=== PATIENT | female | born 1975 | race Caucasian/White ===

== ENCOUNTER 2019-01-06 10:24 | Emergency (ER) | payer OTHER ==
[~2019-01-06] VITALS: Ht 172.7 cm; Wt 67.4 kg
[2019-01-06 10:40] VITALS: BP 132/94
[2019-01-06] MEDS ORDERED: ASPI-1718 PO (11:42)
[2019-01-06] MEDS ORDERED: SERT50TA PO (11:42)
[2019-01-06] MEDS ORDERED: MULT15LI1 PO (11:42)
[2019-01-06] MEDS ORDERED: KEP500L PO (11:42)
[2019-01-06] MEDS ORDERED: IBUP-2213 PO (11:42)
[2019-01-06] MEDS ORDERED: BEN50 PO (11:42)
[2019-01-06] MEDS ORDERED: FERR325E14 PO (11:42)
[2019-01-06] MEDS ORDERED: PRON INH (11:42)
[2019-01-06] MEDS ORDERED: PANT40EC PO (11:42)
[2019-01-06] MEDS ORDERED: TYL650S PO (11:42)
[2019-01-06] MEDS ORDERED: BISA-246 RC (11:42)
[2019-01-06 11:47] LABS: BASOPHILS % (AUTO) 0.5 % (0.0-2.0); EOSINOPHILS # (AUTO) 0.1 K/uL (0-0.4); EOSINOPHILS % (AUTO) 1.4 % (0.0-4.0); HEMATOCRIT 38.6 % (36-48); HEMOGLOBIN 13.2 g/dL (12.0-16.0); LYMPHOCYTES # (AUTO) 1.4 K/uL (2.5-16.5); LYMPHOCYTES % (AUTO) 35.1 % (20.5-51.1); MEAN CORPUSCULAR HEMOGLOBIN 30 pg (27-31); MEAN CORPUSCULAR HGB CONC 34 g/dL (33-37); MEAN CORPUSCULAR VOLUME 86.6 fL (80-94); MONOCYTES # (AUTO) 0.3 K/uL (0.8-1.0); MONOCYTES % (AUTO) 8.4 % (1.7-9.3); NEUTROPHILS # (AUTO) 2.2 K/uL (1.8-7.7); NEUTROPHILS % (AUTO) 54.6 % (42.2-75.2); PLATELET COUNT (AUTO) 219 K/uL (140-450); RED BLOOD CELL COUNT(AUTO) 4.46 MIL/uL (4.20-5.40); RED CELL DISTRIBUTION WIDTH 12.5 % (11.6-13.7); WHITE BLOOD COUNT (AUTO) 4.1 K/uL (4.8-10.8)
[2019-01-06 11:50] LABS: APPEARANCE,URINE SL CLOUDY (CLEAR); BILIRUBIN,URINE NEGATIVE (NEGATIVE); BLOOD, URINE 2+ (NEGATIVE); COLOR,URINE YELLOW (YELLOW); LEUKOCYTE ESTERASE ,URINE TRACE (NEGATIVE); NITRITE, URINE NEGATIVE (NEGATIVE); UGLUCOSE NEGATIVE (NEGATIVE)
[2019-01-06 11:52] LABS: ANION GAP 12.5 (8-16); CREATININE 0.6 mg/dL (0.6-1.3); POTASSIUM 3.5 mmol/L (3.5-5.1)
[2019-01-06 11:58] LABS: TOTAL BILIRUBIN 0.4 mg/dL (0.0-1.0)
--- NOTE | 2019-01-06 13:43 | NUR ---
report given to letty for continuity of care
--- NOTE | 2019-01-06 13:43 | NUR ---
report given to letty for continuity of care
--- NOTE | 2019-01-06 14:30 | NUR ---
Patient discharged with v/s stable. Written and verbal after care instructions given and explained. Patient alert, oriented and verbalized understanding of instructions. Ambulatory with steady gait. All questions addressed prior to discharge. ID band removed. Patient advised to follow up with PMD. Rx of PYRIDIUM, CIPROFLOXACIN given. Patient educated on indication of medication including possible reaction and side effects. Opportunity to ask questions provided and answered.
[2019-01-06 14:40] VITALS: BP 122/82
== END 2019-01-06 14:30 | disposition home or self-care (01) ==
LOC: MED 10:24
DX: N39.0 Urinary tract infection, site not specified (principal); R19.7 Diarrhea, unspecified; J45.909 Unspecified asthma, uncomplicated; I10 Essential (primary) hypertension; G80.9 Cerebral palsy, unspecified; Z79.1 Long term (current) use of non-steroidal anti-inflammatories (NSAID); Z79.82 Long term (current) use of aspirin; Z79.899 Other long term (current) drug therapy
CPT/HCPCS: 36415; 80053; 81001; 81025; 85025; 87086; 99284

== ENCOUNTER 2019-01-31 10:21 | Inpatient (IN) | payer MEDICAID, OTHER ==
[~2019-01-31] VITALS: Ht 167.6 cm; Wt 52.2 kg
[~2019-01-31 10:21] MED LIST: ASPI-1718 PO; BEN50 PO; BISA-246 RC; FERR325E14 PO; IBUP-2213 PO; KEP500L PO; MULT15LI1 PO; PANT40EC PO; PRON INH; SERT50TA PO; TYL650S PO
[2019-01-31 10:22] VITALS: BP 80/58
--- NOTE | 2019-01-31 10:38 | NUR ---
[facility] WHEELCHAIR ASSISTED TO BED 5 AT THIS TIME.
--- NOTE | 2019-01-31 10:46 | NUR ---
PATIENT PRESENTS TO ED WITH BROUGHT IN BY CAREGIVER---PT C/O INTERMITTENT WATERY STOOLS, SUPRAPUBIC PAIN WITH BURNING PAIN UPON VOIDING X 2 WK HAS A G-TUBE WHICH ONLY USES FOR MEDICATIONS--- SKIN IS PINK/WARM/DRY; AAOX4 WITH EVEN AND STEADY GAIT; LUNGS CLEAR BL; HR EVEN AND REGULAR; PT DENIES ANY FEVER, CP, SOB, OR COUGH AT THIS TIME; PATIENT STATES PAIN OF 8/10 AT THIS TIME; VSS; PATIENT POSITIONED FOR COMFORT; HOB ELEVATED; BEDRAILS UP X2; BED DOWN. ER MD MADE AWARE OF PT STATUS.
--- NOTE | 2019-01-31 10:46 | NUR ---
UNABLE TO VOID AT THIS TIME.
[2019-01-31] MEDS ORDERED: MORPHINE SULFATE 2 MG/ML SYR IVP ONE (10:55)
[2019-01-31] MEDS ORDERED: ONDANSETRON 4 MG/2 ML VIAL IVP ONE (10:55)
[2019-01-31] MEDS ORDERED: NACL 0.9% 1,000 ML IV ONE (10:55)
[2019-01-31 11:31] LABS: BASOPHILS % (AUTO) 0.3 % (0.0-2.0); EOSINOPHILS # (AUTO) 0.2 K/uL (0-0.4); HEMATOCRIT 41.8 % (36-48); LYMPHOCYTES # (AUTO) 2.1 K/uL (2.5-16.5); LYMPHOCYTES % (AUTO) 24.9 % (20.5-51.1); MEAN CORPUSCULAR HEMOGLOBIN 29 pg (27-31); MEAN CORPUSCULAR HGB CONC 34 g/dL (33-37); MEAN CORPUSCULAR VOLUME 86.1 fL (80-94); MONOCYTES # (AUTO) 1.1 K/uL (0.8-1.0); MONOCYTES % (AUTO) 13.1 % (1.7-9.3); NEUTROPHILS # (AUTO) 4.9 K/uL (1.8-7.7); NEUTROPHILS % (AUTO) 59.7 % (42.2-75.2); PLATELET COUNT (AUTO) 384 K/uL (140-450); RED BLOOD CELL COUNT(AUTO) 4.86 MIL/uL (4.20-5.40); RED CELL DISTRIBUTION WIDTH 12.1 % (11.6-13.7); WHITE BLOOD COUNT (AUTO) 8.3 K/uL (4.8-10.8)
--- NOTE | 2019-01-31 11:38 | NUR ---
PT C/O PAIN TO LEFT HAND IV INSERT SITE---RIGHT FOREARM PIV INSERTED, PATENT CXR AT BEDSIDE
[2019-01-31 11:45] LABS: PROTHROMBIN TIME 10.3 secs (10.8-13.4)
[2019-01-31 11:46] LABS: ANION GAP 11.4 (8-16); CARBON DIOXIDE 31.6 mmol/L (21-32); CREATININE 0.9 mg/dL (0.6-1.3); TOTAL BILIRUBIN 0.2 mg/dL (0.0-1.0)
[2019-01-31] MEDS ORDERED: KCL 20 MEQ/WATER INJ PREMIX 100 ML IV ONE (12:05)
[2019-01-31] MEDS ORDERED: MAG SULF 2000 MG/WATER PREMIX 50 ML IV ONE ×3 (12:05→12:20)
--- NOTE | 2019-01-31 12:08 | NUR ---
PT NOTIFIED OF PT'S HR
[2019-01-31] MEDS ORDERED: ACETAMINOPHEN 325 MG TAB PO PRN (12:50)
[2019-01-31] MEDS ORDERED: ONDANSETRON 4 MG/2 ML VIAL IVP PRN (12:50)
--- NOTE | 2019-01-31 13:13 | NUR ---
START K RIDER SLOW AT 25ML / HR SINCE PT HAS 22GA PIV RIGHT FOREARM TO PREVENT IRRITATION OR PAIN TO SITE
[2019-01-31 13:16] LABS: APPEARANCE,URINE CLEAR (CLEAR); BILIRUBIN,URINE NEGATIVE (NEGATIVE); BLOOD, URINE 2+ (NEGATIVE); COLOR,URINE YELLOW (YELLOW); LEUKOCYTE ESTERASE ,URINE NEGATIVE (NEGATIVE); NITRITE, URINE NEGATIVE (NEGATIVE); UGLUCOSE NEGATIVE (NEGATIVE)
[2019-01-31 13:22] LABS: BARBITURATE, URINE NEG. ng/ml (NEG <=200); BENZODIAZEPINE, URINE NEG. ng/mL (NEG <=200); CANNABINOID, URINE NEG. ng/mL (NEG <=50); COCAINE, URINE NEG. ng/mL (NEG <=300); OPIATE, URINE NEG. ng/mL (NEG <=2000); PHENCYCLIDINE SCREEN,URINE NEG. ng/mL (NEG <=25)
[2019-01-31 13:26] LABS: CHOL/HDL RATIO 2.9 (1-4.5); FREE T4 (FREE THYROXINE) 1.58 ng/dL (0.76-1.46); PHOSPHORUS 2.3 mg/dL (2.5-4.9); THYROID STIMULATING HORMONE 1.12 uIU/mL (0.34-3.74)
[2019-01-31] MEDS ORDERED: GLYCERIN ADULT 1 SUPP RC PRN (13:30)
[2019-01-31] MEDS ORDERED: IBUPROFEN 600 MG TAB PO PRN (13:30)
[2019-01-31] MEDS ORDERED: diphenhydrAMINE 50 MG CAP PO PRN (13:30)
--- NOTE | 2019-01-31 13:54 | NUR ---
Pt transferred to Tele via [facility] REPORT GIVEN TO AIMEE GAMA
--- NOTE | 2019-01-31 14:00 | NUR ---
Received patient from ER via gurney accompanied by staff. Patient awake, alert and oriented to name, situation and time. No apparent physical distress. Attached tele monitor. Initiate admission assessment. Skin intact. PERRL. Lungs clear to auscultation bilaterally. Abdomen soft, non-distended, bowel sounds present all quadrant, reports abdominal pain. Able to make needs known. Oriented to room set-up. Safety precautions in place. Will continue to monitor.
[2019-01-31 14:19] LABS: RBC,URINE 11-20 (MOD) /HPF (0-5)
[2019-01-31 14:20] LABS: WBC,URINE 0-5 /HPF (0-5)
[2019-01-31] MEDS ORDERED: ALBUTEROL SULFATE/IPRATROPIU 3 ML SOL IH PRN (14:20)
[2019-01-31] MEDS: DEXT 5% /NACL 0.9% 1,000 ML IV SCH ×2 (14:28→23:38)
[2019-01-31 14:35] VITALS: BP 108/75
[2019-01-31] MEDS: HYDROcodone/APAP 7.5/325 MG 1 TAB PO PRN (16:11)
--- NOTE | 2019-01-31 16:11 | NUR ---
Patient reports still having abdominal cramping pain, /, noted patient grimacing with guarded movements. Given prn of Hydrocodone 7.5/325 1 tab PO. Will continue to monitor.
[2019-01-31 16:17] VITALS: BP 90/65
--- NOTE | 2019-01-31 18:41 | NUR ---
VSS. PATIENT ALERT AND ORIENTED. NO ACUTE PHYSICAL DISTRESS. PATIENT COMPLAINED OF ABDOMINAL PAIN 5/10 MEDICATED WITH NORCO 7.5/325 WITH RELIEF. ON TELE MONITOR WITH SR-ST. PATIENT ENCOURAGED TO TURN AND REPOSITION Q2H. SCD IN PLACE. ASLEEP AT THIS TIME. SAFETY PRECAUTIONS MAINTAINED AT ALL TIMES. WILL CONTINUE TO MONITOR.
--- NOTE | 2019-01-31 19:07 | NUR ---
RECEIVED REPORT FROM AM SHIFT. PT AFEBRILE AOX4. LUNG SOUNDS CLEAR. EVEN UNLABORED BREATHING. SR ON MONITOR. DENIES CHEST PAIN. ABD SOFT NONTENDER. BOWEL SOUNDS HYPOACTIVE X 4 QUADRANTS. NPO EXCEPT MEDS. BLADDER NON DISTENDED. URINE CLEAR YELLOW. BSC AT BEDSIDE. IV SITE LFA 22G. DRESSING INTACT. L HAND 22 G. BED IN LOWEST POSITION. SIDE RAILS UP X 4. CALL LIGHT WITHIN REACH. WILL CONTINUE TO MONITOR,.
--- NOTE | 2019-01-31 19:17 | NUR ---
ENDORSED CARE TO LANETTE STALLINGS FOR CONTINUITY OF CARE.
--- NOTE | 2019-01-31 19:39 | NUR ---
DR. JARAMILLO AT BEDSIDE AT THIS TIME. UPDATED ON PTS CURRENT CONDITION. WILL CONTINUE TO FOLLOW UP ANY ADDITIONAL ORDERS
[2019-01-31 20:00] VITALS: BP 90/61
[2019-01-31] MEDS ORDERED: [UNRECOGNIZED DRUG - REMARK] IV ONE (20:40)
[2019-01-31] MEDS ORDERED: [UNRECOGNIZED DRUG - OTHER] MC ONE (20:40)
[2019-01-31] MEDS: AMITRIPTYLINE 10 MG TAB PO SCH (20:59)
[2019-01-31] MEDS: DOCUSATE SODIUM 100 MG GELCAP PO SCH (20:59)
[2019-01-31] MEDS: levETIRAcetam 100 MG/ML ORASYR PO SCH (20:59)
[2019-01-31] MEDS ORDERED: MAGNESIUM CITRATE 300 ML BTL PO SCH (21:00)
[2019-01-31] MEDS ORDERED: FERROUS SULFATE 325 MG TABEC PO SCH (21:00)
--- NOTE | 2019-01-31 21:04 | NUR ---
SPOKE TO ADELSO. FINANCIAL CONSULTANT FOR COBBLESTONE BOARD AND CARE. UPDATED ON PTS CURRENT CONDITION.
--- NOTE | 2019-01-31 21:07 | NUR ---
XRAY AT BEDSIDE AT THIS TIME
--- NOTE | 2019-01-31 21:46 | NUR ---
ULTRASOUND AT BEDSIDE AT THIS TIME
--- NOTE | 2019-01-31 23:30 | NUR ---
PT UP TO USE BSC AT THIS TIME. URINE ONLY AT THIS TIME. URINE CLEAR YELLOW. NO FOUL ODOR NOTED.
[2019-01-31] MEDS: METOCLOPRAMIDE 10 MG/2 ML INJ VIAL IVP SCH (23:43)
[2019-02-01] VITALS: BP 113/61
--- NOTE | 2019-02-01 00:52 | NUR ---
PT URINATED IN BSC AT THIS TIME. URINE CLEAR YELLOW. NO SIGNS OF ACUTE DISTRESS AT THIS TIME.
--- NOTE | 2019-02-01 03:48 | NUR ---
PT RESTING QUIETLY AT THIS TIME. NO SIGNS OF ACUTE DISTRESS NOTED.
[2019-02-01 04:00] VITALS: BP 92/63
--- NOTE | 2019-02-01 04:50 | NUR ---
LAB AT BEDSIDE AT THIS TIME FOR AM DRAWS
--- NOTE | 2019-02-01 05:45 | NUR ---
PT ON BEDSIDE COMMODE AT THIS TIME
[2019-02-01] MEDS: METOCLOPRAMIDE 10 MG/2 ML INJ VIAL IVP SCH ×3 (06:00→17:12)
[2019-02-01 06:01] LABS: ANION GAP 6.5 (8-16); CARBON DIOXIDE 31.6 mmol/L (21-32); CREATININE 0.6 mg/dL (0.6-1.3); POTASSIUM 3.1 mmol/L (3.5-5.1)
[2019-02-01 06:02] LABS: MAGNESIUM 2.4 mg/dL (1.8-2.4); PHOSPHORUS 3.2 mg/dL (2.5-4.9)
--- NOTE | 2019-02-01 06:10 | NUR ---
DR. WOLF AT BEDSIDE AT THIS TIME. UPDATED ON PTS CURRENT CONDITION. WILL CONTINUE TO FOLLOW UP ADDITIONAL ORDERS
[2019-02-01] MEDS ORDERED: KCL 20 MEQ/WATER INJ PREMIX 200 ML IV SCH (06:45)
[2019-02-01 06:47] LABS: BASOPHILS % (AUTO) 0.5 % (0.0-2.0); EOSINOPHILS # (AUTO) 0.4 K/uL (0-0.4); EOSINOPHILS % (AUTO) 7.6 % (0.0-4.0); HEMATOCRIT 31.4 % (36-48); HEMOGLOBIN 10.9 g/dL (12.0-16.0); LYMPHOCYTES % (AUTO) 40.7 % (20.5-51.1); MEAN CORPUSCULAR HEMOGLOBIN 30 pg (27-31); MEAN CORPUSCULAR HGB CONC 35 g/dL (33-37); MEAN CORPUSCULAR VOLUME 85.8 fL (80-94); MONOCYTES # (AUTO) 0.6 K/uL (0.8-1.0); MONOCYTES % (AUTO) 11.9 % (1.7-9.3); NEUTROPHILS # (AUTO) 1.9 K/uL (1.8-7.7); NEUTROPHILS % (AUTO) 39.3 % (42.2-75.2); PLATELET COUNT (AUTO) 309 K/uL (140-450); RED BLOOD CELL COUNT(AUTO) 3.66 MIL/uL (4.20-5.40); RED CELL DISTRIBUTION WIDTH 12.3 % (11.6-13.7); WHITE BLOOD COUNT (AUTO) 4.9 K/uL (4.8-10.8)
--- NOTE | 2019-02-01 07:16 | NUR ---
RECEIVED REPORT FROM ICU NURSE TRAVIS. PT IS AOX4. LUNG SOUNDS CLEAR. EVEN UNLABORED BREATHING. SR ON MONITOR. DENIES CHEST PAIN. BOWEL SOUNDS ACTIVE X 4 QUADRANTS. NPO EXCEPT MEDS. BLADDER NON DISTENDED. IV SITE LFA 22G. DRESSING INTACT. L HAND 22 G. BED IN LOWEST POSITION. SIDE RAILS UP X 4. CALL LIGHT WITHIN REACH. WILL CONTINUE TO MONITOR.
--- NOTE | 2019-02-01 07:33 | NUR ---
ENDORSED CARE TO [facility] NURSE. PT TRANSFERRED TO [facility] 106A
[2019-02-01 08:00] VITALS: BP 102/58
[2019-02-01] MEDS: SERTRALINE 50 MG TAB PO SCH (09:09)
[2019-02-01] MEDS: DOCUSATE SODIUM 100 MG GELCAP PO SCH ×2 (09:09→21:41)
[2019-02-01] MEDS: levETIRAcetam 100 MG/ML ORASYR PO SCH ×2 (09:09→21:43)
[2019-02-01] MEDS: ASPIRIN 81 MG TAB.CHEW PO SCH (09:09)
--- NOTE | 2019-02-01 09:09 | NUR ---
ADMINISTERED MORNING MEDS TO PT. PT TOLERATED THEM WELL. ALL NEEDS CURRENTLY MET FOR PT. PT WAS ALSO GIVEN NORCO FOR MORALES PAIN OF 6/10. WILL CONTINUE TO MONITOR PT. BED IN LOW POSITION, CALL LIGHT WITHIN REACH.
[2019-02-01] MEDS: PANTOPRAZOLE 40 MG TABEC PO SCH (09:10)
[2019-02-01] MEDS: HYDROcodone/APAP 7.5/325 MG 1 TAB PO PRN (09:10)
[2019-02-01] MEDS: POTASSIUM CHLORIDE 40 MEQ, LIDOCAINE 1% 25 MG in NACL 0.9% 250 ML IV SCH ×2 (09:11→11:38)
--- NOTE | 2019-02-01 10:02 | NUR ---
PATIENT HAS BEEN SCREENED AND CATEGORIZED HIGH NUTRITION RISK. PATIENT WILL BE SEEN WITHIN 1-2 DAYS OF ADMISSION. 02/01/19-02/02/[address]
[2019-02-01] MEDS: DEXT 5% /NACL 0.9% 1,000 ML IV SCH (10:05)
[2019-02-01] MEDS ORDERED: fentaNYL 0.05 MG/ML VIAL ONE (10:16)
[2019-02-01] MEDS ORDERED: MIDAZOLAM 2 MG/2 ML VIAL ONE ×2 (10:16)
[2019-02-01] MEDS ORDERED: diphenhydrAMINE 50 MG/ML VIAL ONE (10:16)
--- NOTE | 2019-02-01 10:46 | NUR ---
PT TAKEN TO OR FOR EGD PROCEDURE. PT LEFT IN STABLE CONDITION.
[2019-02-01] MEDS ORDERED: fentaNYL 0.05 MG/ML VIAL IVP ONE (12:50)
[2019-02-01] MEDS ORDERED: MIDAZOLAM 2 MG/2 ML VIAL IVP ONE (12:50)
--- NOTE | 2019-02-01 13:38 | NUR ---
02/01/19 RD INITIAL ASSESSMENT COMPLETED PLEASE REFER TO NUTRITION ASSESSMENT UNDER CARE ACTIVITY FOR ESTIMATED NUTRITIONAL NEEDS. 1. CONTINUE FULL LIQUID DIET 2. IF/WHEN PT IS MEDICALLY STABLE RECOMMEND BRAT DIET 3. HEALTHY EATING EDUCATION WAS PROVIDED 4. RD TO FOLLOW-UP 2-3 DAYS, HIGH RISK MALIK WAGNER RD
[2019-02-01 16:00] VITALS: BP 102/54
[2019-02-01] MEDS: MUPIROCIN CA NASAL 2% 1GM TUBE NS SCH (16:04)
[2019-02-01] MEDS: CHLORHEXADINE GLUC 2% CLOTH TP SCH (16:04)
--- NOTE | 2019-02-01 19:32 | NUR ---
RECEIVED REPORT FROM AQUILINO GAMA DAYSHIFT NURSE AT BEDSIDE FOR CONTINUITY OF CARE, PT IN STABLE CONDITION.
--- NOTE | 2019-02-01 19:32 | NUR ---
ENDORSED PT TO HYBRID TECHNOLOGIST FOR CONTINUITY OF CARE. PT IN STABLE CONDITION.
[2019-02-01 20:00] VITALS: BP 107/76
--- NOTE | 2019-02-01 20:00 | NUR ---
RECEIVED REPORT FROM AQUILINO GAMA DAYSHIFT NURSE AT BEDSIDE FOR CONTINUITY OF CARE, PT IN STABLE CONDITION. PT AOX4 ON FALLS AND CONTACT PRECAUTIONS. PT ASSISTED ON BEDPAN. IV SITE ON RIGHT F/A REMOVED DUE TO DISCOMFORT. PT IV FLUIDS RUNNING VIA LEFT HAND 222G. FLUIDS RUNNING ORDERED. SEIZURE PRECAUTIONS IN PLACE. PT LUNGS CLEAR AND BOWEL SOUNDS PRESENT. V/S FOLLOWS T 97.8 P 80 R 20 B/P 107/76 02 95% ON ROOM AIR.
--- NOTE | 2019-02-01 21:30 | NUR ---
PT GIVEN LACTULOSE, KEPPRA , COLACE AND ELAVIL ORDERED. PT ASSISTED TO TOILET AND BACK NO BM YET. NO S/S OF PAIN OR DISTRESS NOTED. IV SITE ON LEFT HAND INTACT AND RUNNING FLUIDS ORDERED.
[2019-02-01] MEDS: LACTULOSE 20 GM/30 ML UDC PO SCH (21:42)
[2019-02-01] MEDS: AMITRIPTYLINE 10 MG TAB PO SCH (22:19)
--- NOTE | 2019-02-02 00:30 | NUR ---
PT IN BED, PT REQUEST BED RUIZ AND WAS GIVEN REQUESTED. V/S FOLLOWS T T 97.8 P 78 R 18 B/P 99/70 02 97% ON R/A. ALL FALLS, CONTACT ASPIRATION AND SEIZURE PRECAUTIONS IN PLACE. PT DENIES PAIN AT THIS TIME ALL REQUESTED NEEDS ATTENDED AND CLL SMALL IN REACH.
[2019-02-02] MEDS: METOCLOPRAMIDE 10 MG/2 ML INJ VIAL IVP SCH ×3 (01:02→12:04)
[2019-02-02 04:00] VITALS: BP 105/66
--- NOTE | 2019-02-02 06:00 | NUR ---
IV SITE INFILTRATED ON LEFT HAND IV REMOVED AND IV FLUIDS STOPPED, PT DIDN'T RECEIVE IV REGALN AT 6AM .
--- NOTE | 2019-02-02 07:20 | NUR ---
REPORT GIVEN TO KO RN DAYSHIFT NURSE AT BEDSIDE, PT IN STABLE CONDITION.
--- NOTE | 2019-02-02 07:21 | NUR ---
RECEIVED REPORT FROM PM NURSE AT THE BEDSIDE. PT HAS THE IV SITE INFILTRATED. LFT HAND SWOLLEN DUE TO THE INFILTRATION. PT HAS THE G-TUBE. NO TUBE FEEDING. ON CONTACT PRECAUTION FOR MRSA IN THE NARES AND SEIZURE PRECAUTION. PT PLACE ON THE FALL RISK, ON FULL LIQUID DIET. AOX4. NO SIGN OF DISTRESS NOTED. ALL SAFETY MEASURE IN PLACE. WILL CONTINUE TO MONITOR PT.
[2019-02-02 07:56] LABS: ANION GAP 11.2 (8-16); CARBON DIOXIDE 28.5 mmol/L (21-32); CREATININE 0.5 mg/dL (0.6-1.3); POTASSIUM 3.7 mmol/L (3.5-5.1)
[2019-02-02 08:00] VITALS: BP 113/77
[2019-02-02 08:02] LABS: MAGNESIUM 1.9 mg/dL (1.8-2.4); PHOSPHORUS 3.3 mg/dL (2.5-4.9)
[2019-02-02 08:22] LABS: BASOPHILS % (AUTO) 0.5 % (0.0-2.0); EOSINOPHILS # (AUTO) 0.2 K/uL (0-0.4); EOSINOPHILS % (AUTO) 3.9 % (0.0-4.0); HEMATOCRIT 35.4 % (36-48); HEMOGLOBIN 11.8 g/dL (12.0-16.0); LYMPHOCYTES # (AUTO) 1.9 K/uL (2.5-16.5); LYMPHOCYTES % (AUTO) 39.2 % (20.5-51.1); MEAN CORPUSCULAR HEMOGLOBIN 29 pg (27-31); MEAN CORPUSCULAR HGB CONC 33 g/dL (33-37); MEAN CORPUSCULAR VOLUME 86.4 fL (80-94); MONOCYTES # (AUTO) 0.5 K/uL (0.8-1.0); MONOCYTES % (AUTO) 9.8 % (1.7-9.3); NEUTROPHILS # (AUTO) 2.2 K/uL (1.8-7.7); NEUTROPHILS % (AUTO) 46.6 % (42.2-75.2); PLATELET COUNT (AUTO) 269 K/uL (140-450); RED CELL DISTRIBUTION WIDTH 12.2 % (11.6-13.7); WHITE BLOOD COUNT (AUTO) 4.8 K/uL (4.8-10.8)
[2019-02-02] MEDS: DOCUSATE SODIUM 100 MG GELCAP PO SCH ×2 (09:05→21:47)
[2019-02-02] MEDS: ASPIRIN 81 MG TAB.CHEW PO SCH (09:05)
[2019-02-02] MEDS: PANTOPRAZOLE 40 MG TABEC PO SCH (09:05)
[2019-02-02] MEDS: SERTRALINE 50 MG TAB PO SCH (09:05)
[2019-02-02] MEDS: LACTULOSE 20 GM/30 ML UDC PO SCH ×2 (09:05→21:47)
[2019-02-02] MEDS: levETIRAcetam 100 MG/ML ORASYR PO SCH ×2 (09:06→21:47)
[2019-02-02] MEDS ORDERED: KETOROLAC 30 MG/ML VIAL IM SCH (11:00)
--- NOTE | 2019-02-02 12:10 | NUR ---
ADMINISTERED MEDS TO PT FOR PAIN. STATES HAS STOMACH CRAMPING. PT LFT HAND GETTING GOOD. STATES IS OKAY AT THIS TIME. WILL CONTINUE TO MONITOR PT.
[2019-02-02] MEDS: MUPIROCIN CA NASAL 2% 1GM TUBE NS SCH (14:37)
[2019-02-02] MEDS: CHLORHEXADINE GLUC 2% CLOTH TP SCH (14:41)
--- NOTE | 2019-02-02 14:41 | NUR ---
APPLIED BACTROBAN NASAL CREAM TO THE PATIENT NARES AND CLEANED THE PATIENT WITH THE CHLORHEXIDINE WIPES. PT SLEEPING COMFORTABLY IN HER BED. NO SIGN OF DISTRESS NOTED. ALL SAFETY MEASURE IN PLACE. WILL CONTINUE TO MONITOR PT.
--- NOTE | 2019-02-02 15:34 | NUR ---
DISCONTINUED PT GT TUBE ORDERED. PT TOLERATED WELL. CLEANED THE SITE AND APPLIED 4X4 GAUDE AND TAPED IT. PT SLEEPING COMFORTABLY. WILL CONTINUE TO MONITOR PT.
[2019-02-02 16:00] VITALS: BP 104/68
--- NOTE | 2019-02-02 19:15 | NUR ---
ENDORSED PT TO PM NURSE AT BEDSIDE. PT IN STABLE CONDITION.
--- NOTE | 2019-02-02 19:16 | NUR ---
RECEIVED REPORT FROM LANETTE CONNELL FOR CONTINUITY OF CARE. PT IS ALERT AND ORIENTED x4, ON ROOM AIR. PT IS ABLE TO FOLLOW COMMANDS, ABLE TO MAKE NEEDS KNOWN. PT HAS OLD G-TUBE SITE COVERED WITH DRESSING, OTHERWISE SKIN IS INTACT. PT HAS A 22G IV TO RIGHT FOREARM, ASYMPTOMATIC AND INTACT. NO SIGNS OF DISTRESS NOTED AT THIS TIME. DISCUSSED PLAN OF CARE WITH PT, PT VERBALIZED UNDERSTANDING. PT DENIES PAIN. VITAL SIGNS STABLE. POSITIONED PT FOR COMFORT. BED IN LOWEST POSITION AND CALL LIGHT WITHIN REACH. WILL CONTINUE TO MONITOR.
--- NOTE | 2019-02-02 21:49 | NUR ---
ADMINISTERED SCHEDULED MEDICATIONS AND TYLENOL FOR MILD HEADACHE, PT TOLERATED WELL. BED IN LOWEST POSITION, CALL LIGHT WITHIN REACH. WILL CONTINUE TO MONITOR.
[2019-02-03] VITALS: BP 117/73
--- NOTE | 2019-02-03 | NUR ---
NO SIGNS OF DISTRESS NOTED AT THIS TIME. PT DENIES PAIN. VITAL SIGNS STABLE. POSITIONED PT FOR COMFORT. BED IN LOWEST POSITION AND CALL LIGHT WITHIN REACH. WILL CONTINUE TO MONITOR.
--- NOTE | 2019-02-03 03:15 | NUR ---
PT RESTING. ALL NEEDS MET AT THIS TIME. BED IN LOWEST POSITION AND CALL LIGHT WITHIN REACH. WILL CONTINUE TO MONITOR.
--- NOTE | 2019-02-03 06:18 | NUR ---
NO SIGNS OF DISTRESS NOTED. POSITIONED PT FOR COMFORT. BED IN LOWEST POSITION AND CALL LIGHT WITHIN REACH. WILL CONTINUE TO MONITOR.
[2019-02-03 06:47] LABS: ANION GAP 13.1 (8-16); CARBON DIOXIDE 26.2 mmol/L (21-32); CREATININE 0.5 mg/dL (0.6-1.3); POTASSIUM 3.3 mmol/L (3.5-5.1)
[2019-02-03 06:54] LABS: MAGNESIUM 1.7 mg/dL (1.8-2.4); PHOSPHORUS 3.2 mg/dL (2.5-4.9)
--- NOTE | 2019-02-03 07:10 | NUR ---
ENDORSED PT TO DAY SHIFT LANETTE MAYES FOR CONTINUITY OF CARE. PT IN STABLE CONDITION.
--- NOTE | 2019-02-03 07:11 | NUR ---
RECEIVED REPORT AT BEDSIDE FROM INSULATION CUTTER NURSE CARL. PT IN STABLE CONDITION. RESPIRATIONS EVEN AND UNLABORED. IV INTACT AND PATENT. SAFETY MEASURES IN PLACE. BED IN LOW POSITION. CALL LIGHT AT BEDSIDE. WILL CONTINUE TO MONITOR.
[2019-02-03 07:58] LABS: BASOPHILS % (AUTO) 0.2 % (0.0-2.0); EOSINOPHILS # (AUTO) 0.2 K/uL (0-0.4); EOSINOPHILS % (AUTO) 2.1 % (0.0-4.0); HEMATOCRIT 37.3 % (36-48); HEMOGLOBIN 12.5 g/dL (12.0-16.0); LYMPHOCYTES # (AUTO) 1.6 K/uL (2.5-16.5); MEAN CORPUSCULAR HEMOGLOBIN 29 pg (27-31); MEAN CORPUSCULAR HGB CONC 34 g/dL (33-37); MEAN CORPUSCULAR VOLUME 86.1 fL (80-94); MONOCYTES # (AUTO) 0.7 K/uL (0.8-1.0); MONOCYTES % (AUTO) 6.7 % (1.7-9.3); NEUTROPHILS # (AUTO) 8.2 K/uL (1.8-7.7); PLATELET COUNT (AUTO) 301 K/uL (140-450); RED BLOOD CELL COUNT(AUTO) 4.34 MIL/uL (4.20-5.40); RED CELL DISTRIBUTION WIDTH 12.3 % (11.6-13.7); WHITE BLOOD COUNT (AUTO) 10.8 K/uL (4.8-10.8)
[2019-02-03 08:00] VITALS: BP 117/84
[2019-02-03] MEDS ORDERED: POTASSIUM CHLORIDE 10 MEQ TABER PO SCH (08:00)
[2019-02-03] MEDS: levETIRAcetam 100 MG/ML ORASYR PO SCH (08:53)
[2019-02-03] MEDS: LACTULOSE 20 GM/30 ML UDC PO SCH (08:54)
[2019-02-03] MEDS: DOCUSATE SODIUM 100 MG GELCAP PO SCH (08:54)
[2019-02-03] MEDS: PANTOPRAZOLE 40 MG TABEC PO SCH (08:55)
[2019-02-03] MEDS: ASPIRIN 81 MG TAB.CHEW PO SCH (08:55)
[2019-02-03] MEDS ORDERED: SERTRALINE 50 MG TAB PO SCH (09:00)
[2019-02-03] MEDS: MAG SULF 2000 MG/WATER PREMIX 50 ML IV SCH ×2 (09:06→11:03)
--- NOTE | 2019-02-03 09:10 | NUR ---
GAVE ORDERED MEDICATIONS AT THIS TIME. PT TOLERATED WELL. WILL CONTINUE TO MONITOR.
--- NOTE | 2019-02-03 11:50 | NUR ---
GAVE REPORT TO JUSTIN STAFF BSA/AML COMPLIANCE OFFICER AT [facility] FOR CONTINUITY OF CARE. ALL QUESTIONS ANSWERED AT THIS TIME. JUSTIN VERBALIZED UNDERSTANDING OF REPORT.
[2019-02-03] MEDS ORDERED: INFLUENZA VIRUS VACCINE QUAD 0.5 ML SYR IMVAC PRN (12:45)
--- NOTE | 2019-02-03 12:58 | NUR ---
ASSISTED PT TO RESTROOM AT THIS TIME. PT TOLERATED WELL. WILL CONTINUE TO MONITOR.
--- NOTE | 2019-02-03 13:13 | NUR ---
GAVE DISCHARGE INSTRUCTIONS AND REMINDED PT TO FOLLOW UP WITH PCP DR. ROTHMAN. PT VERBALIZED UNDERSTANDING OF INSTRUCTIONS. IV REMOVED, LUMEN INTACT. ID BAND REMOVED. PT WHEELED TO LOBBY IN WHEELCHAIR WHERE [facility] STAFF WAS WAITING TO TRANSPORT PT BACK. PT IN STABLE CONDITION.
--- NOTE | 2019-02-03 13:19 | NUR ---
A VERBAL REVIEW OF HEALTHY EATING EDUCATION WAS PROVIDED TO THE PATIENT
[2019-02-07 11:07] LABS: FERRITIN 153 ng/mL (15 - 150)
[2019-02-10 08:39] LABS: TRANSFERRIN 123 mg/dL (200-370)
== END 2019-02-03 13:13 | disposition home or self-care (01) | DRG 249 ==
LOC: MED 10:21 → MIC 13:37 → MTU 02-01 07:35
PROVIDERS: ADMIT General Practice; ATTEND General Practice
PROC: 0DB68ZX Excision of Stomach, Via Natural or Artificial Opening Endoscopic, Diagnostic (ICD-10-PCS; principal; 2019-02-01 11:00)
PROC: 0DP6XUZ Removal of Feeding Device from Stomach, External Approach (ICD-10-PCS; 2019-02-02)
PROC: 3E02340 Introduction of Influenza Vaccine into Muscle, Percutaneous Approach (ICD-10-PCS; 2019-02-03)
DX: K52.9 Noninfective gastroenteritis and colitis, unspecified (principal); E87.2 Acidosis; E44.0 Moderate protein-calorie malnutrition; E83.39 Other disorders of phosphorus metabolism; E87.1 Hypo-osmolality and hyponatremia; R13.10 Dysphagia, unspecified; K76.89 Other specified diseases of liver; E87.6 Hypokalemia; G80.9 Cerebral palsy, unspecified; G40.909 Epilepsy, unspecified, not intractable, without status epilepticus; J45.909 Unspecified asthma, uncomplicated; Z68.1 Body mass index [BMI] 19.9 or less, adult; Z93.1 Gastrostomy status; E11.9 Type 2 diabetes mellitus without complications; K21.9 Gastro-esophageal reflux disease without esophagitis; I10 Essential (primary) hypertension; F32.9 Major depressive disorder, single episode, unspecified; E86.0 Dehydration; N20.0 Calculus of kidney; F41.9 Anxiety disorder, unspecified; K59.00 Constipation, unspecified; D64.9 Anemia, unspecified; Z22.322 Carrier or suspected carrier of Methicillin resistant Staphylococcus aureus; Z79.82 Long term (current) use of aspirin; Z79.899 Other long term (current) drug therapy; Z23 Encounter for immunization
CPT/HCPCS: 36415; 71045; 74018; 74220; 76700; 80048; 80053; 80305; 81001; 82150; 82607; 82728; 82746; 83036; 83540; 83605; 83690; 83735; 83880; 84100; 84439; 84443; 84484; 85025; 85045; 85610; 85730; 86677; 87040; 87081; 93005; 96361; 96365; 96375; 99285; J1200; J1885; J2001; J2250; J2270; J2405; J2765; J3010; J3475; J3480; J7030; J7042; Q0092